=== PATIENT | female | born 1990 | race African-American/Black ===

== ENCOUNTER 2018-08-17 16:23 | Emergency (ER) | payer OTHER ==
[~2018-08-17] VITALS: Ht 157.5 cm; Wt 77.0 kg
[2018-08-17] MEDS ORDERED: ACETAMINOPHEN 325MG TABLET PO PRN (18:45)
[2018-08-17] MEDS ORDERED: ONDANSETRON HCL 4MG/2ML INJ IV ONE (18:45)
[2018-08-17 19:13] LABS: CHLORIDE 106 mEq/L (98-107)
[2018-08-17 19:14] LABS: BASOPHILS % 0.6 % (0.0-2.0); EOSINOPHILS % 1.5 % (0.0-5.0); HEMATOCRIT. 34.4 % (36.0-48.0); HEMOGLOBIN. 11.9 g/dL (12.0-16.0); LYMPHOCYTES % 21.8 % (20.0-50.0); MEAN CORPUSCULAR HEMOGLOBIN 31.8 pg (28.0-32.0); MEAN PLATELET VOLUME 8.6 fl (7.4-10.4); MONOCYTES % 9.5 % (2.0-8.0); NEUTROPHILS % 66.6 % (40.0-76.0); PLATELET 261 x1000/uL (130-400); RED BLOOD CELL COUNT 3.74 mill/uL (4.2-5.4); RED CELL DISTRIBUTION WIDTH 12.9 % (11.6-14.6)
[2018-08-17 19:36] LABS: B-HCG QUANTITATIVE 73569 mIU/mL (<3)
[2018-08-17 19:45] LABS: COLOR URINE YELLOW (YELLOW); KETONES URINE NEGATIVE (NEGATIVE); LEUKOCYTE ESTERASE URINE TRACE (NEGATIVE); NITRITE URINE NEGATIVE (NEGATIVE); OCCULT BLOOD URINE NEGATIVE (NEGATIVE); PH URINE 7.5 (4.5-8.0); PROTEIN URINE NEGATIVE (NEGATIVE); SPECIFIC GRAVITY URINE 1.015 (1.005-1.030)
[2018-08-17 19:48] LABS: CLARITY URINE CLOUDY (CLEAR)
[2018-08-17 22:55] VITALS: BP 116/64
== END 2018-08-17 22:57 | disposition home or self-care (01) ==
LOC: EDSEX 16:23 → ER 16:23
DX: O23.32 Infections of other parts of urinary tract in pregnancy, second trimester (principal); Z3A.15 15 weeks gestation of pregnancy
CPT/HCPCS: 36415; 76805; 81025; 84702; 86850; 86900; 99284

== ENCOUNTER 2021-12-23 01:45 | Emergency (ER) | payer OTHER ==
[~2021-12-23] VITALS: Ht 157.5 cm; Wt 67.9 kg
[2021-12-23] MEDS ORDERED: SULF1TAB48 MT ×3 (03:52→04:17)
[2021-12-23] MEDS ORDERED: CEPH500C2 MT ×3 (03:52→04:17)
[2021-12-23 03:59] VITALS: BP 157/99
[2021-12-23] MEDS ORDERED: IBUPROFEN 600MG TABLET PO ONE (04:00)
[2021-12-23] MEDS ORDERED: SULFAMETHOXAZOLE/TRIMETHOPRIM 800/160MG TABLET PO ONE (04:00)
[2021-12-23] MEDS ORDERED: CEPHALEXIN 250MG CAPSULE PO ONE (04:00)
== END 2021-12-23 04:11 | disposition home or self-care (01) ==
LOC: ER 01:45
DX: L03.211 Cellulitis of face (principal); R50.9 Fever, unspecified
CPT/HCPCS: 99284

== ENCOUNTER 2023-04-20 10:37 | Emergency (ER) | payer MEDICAID, OTHER ==
[~2023-04-20] VITALS: Ht 157.5 cm; Wt 75.0 kg
[~2023-04-20 10:37] MED LIST: CEPH500C2 MT; SULF1TAB48 MT
[2023-04-20 10:46] VITALS: BP 122/77; RESP 16; TEMP 98.1; O2SAT 100
[2023-04-20 10:48] VITALS: PULSE 96
[2023-04-20] MEDS ORDERED: ACETAMINOPHEN 500MG TABLET PO ONE (12:00)
== END 2023-04-20 14:37 | disposition left against medical advice (07) ==
LOC: ER 10:37
DX: O26.892 Other specified pregnancy related conditions, second trimester (principal); R10.9 Unspecified abdominal pain; Z3A.17 17 weeks gestation of pregnancy
CPT/HCPCS: 76805; 99284